=== PATIENT | male | born 1985 | race Two or more races ===

== ENCOUNTER 2016-07-20 00:39 | Emergency (ER) | payer OTHER ==
[2016-07-20 00:47] VITALS: BP 103/72; TEMP 98.8; BMI 25.5
[2016-07-20] MEDS ORDERED: LIDO 2%/EPI 1:200000 PRESRVFRE (20 ML SDVIAL) INF ONE (01:17)
[2016-07-20] MEDS ORDERED: LIDOCAINE 1%/EPI 1:100000 (50 ML MULTI DOSE VIAL) ONE (01:24)
[2016-07-20] MEDS ORDERED: TETANUS AND DIPHTHERIA TOXOID 0.5 ML DISP.SYRIN IM ONE (02:03)
[2016-07-20] MEDS ORDERED: BACITRACIN 0.9 GM PACKET TP ONE (02:03)
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
[2016-07-20 03:43] VITALS: PULSE 72
== END 2016-07-20 03:14 | disposition home or self-care (01) ==
LOC: JER 00:39
PROC: 3E0234Z Introduction of Serum, Toxoid and Vaccine into Muscle, Percutaneous Approach (ICD-10-PCS; principal; 2016-07-20)
PROC: 0HQBXZZ Repair Right Upper Arm Skin, External Approach (ICD-10-PCS; 2016-07-20)
DX: S41.111A Laceration without foreign body of right upper arm, initial encounter (principal); S43.491A Other sprain of right shoulder joint, initial encounter; X99.8XXA Assault by other sharp object, initial encounter; Y93.89 Activity, other specified; Y92.29 Other specified public building as the place of occurrence of the external cause
CPT/HCPCS: 12004-25; 73030-TC-RT; 90471; 90715; 99283-25

== ENCOUNTER 2018-01-23 09:21 | Day surgery (SDC) | payer OTHER ==
[2018-01-22 15:35] VITALS: BMI 29.9
--- NOTE | 2018-01-23 12:55 | HP ---
Admitting History and Physical - Admission Chief Complaint: pilonidal cyst History of Present Illness: 32 y.o. male with chronic draining sinus of the intergluteal fold associated with sanguinopurulent discharge. History Source: Patient Limitations to Obtaining History: No Limitations - Smoking History Smoking history: Current every day smoker Have you smoked in the past 12 months: Yes Aproximately how many cigarettes per day: 20 - Alcohol/Substance Use Hx Alcohol Use: No Home Medications - Allergies Allergies/Adverse Reactions: Allergies Allergy/AdvReac Type Severity Reaction Status Date / Time No Known Allergies Allergy Verified 01/22/18 15:35 - Home Medications Home Medications: Ambulatory Orders Citalopram Hydrobromide [Celexa -] 10 mg PO BID #60 tablet 09/02/17 Benztropine Mesylate [Cogentin -] 1 mg PO HS #14 tablet 12/24/17 Risperidone [Risperdal] 2 mg PO BID #28 tablet 12/24/17 Review of Systems - Review of Systems Constitutional: reports: No Symptoms Eyes: reports: No Symptoms HENT: reports: No Symptoms Cardiovascular: reports: No Symptoms Respiratory: reports: No Symptoms Gastrointestinal: reports: No Symptoms Integumentary: reports: Other (chronic draining sinus of intergluteal fold) Physical Examination Vital Signs: Vital Signs Temperature 97.5 F L 01/23/18 11:04 Pulse Rate 69 01/23/18 11:04 Respiratory Rate 18 01/23/18 11:04 Blood Pressure 209/65 H 01/23/18 11:04 O2 Sat by Pulse Oximetry (%) 97 01/23/18 11:04 Constitutional: Yes: Well Nourished Eyes: Yes: Conjunctiva Clear HENT: Yes: Normocephalic Neck: Yes: Supple Cardiovascular: Yes: Regular Rate and Rhythm Respiratory: Yes: CTA Bilaterally Gastrointestinal: Yes: Soft ...Rectal Exam: Yes: Deferred Musculoskeletal: Yes: WNL Integumentary: Yes: Other (3 mm sinus at intergluteal fold with minimal sanguinopurulent discharge) Neurological: Yes: Alert, Oriented Problem List - Problems (1) 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
[2018-01-23] MEDS ORDERED: MIDAZOLAM HCL 2 MG/2 ML SINGLE DOSE VIAL ONE ×4 (13:25→14:49)
[2018-01-23] MEDS ORDERED: LIDOCAINE 1%/EPI 1:100000 (20 ML MULTI DOSE VIAL) ONE (13:33)
[2018-01-23] MEDS ORDERED: ISOSULFAN BLUE 10 MG/ML VIAL SQ ONE (13:33)
[2018-01-23] MEDS ORDERED: ONDANSETRON 4 MG/2 ML VIAL IVPUSH PRN (13:41)
[2018-01-23] MEDS ORDERED: PROPOFOL 20 ML ONE (13:52)
[2018-01-23] MEDS ORDERED: SUCCINYLCHOLINE CHLORIDE 200 MG/10 ML VIAL ONE (13:53)
[2018-01-23] MEDS ORDERED: ceFAZolin SODIUM 1 GM VIAL IVPB ONE (14:04)
[2018-01-23] MEDS ORDERED: LIDOCAINE 1%/EPI 1:100000 (50 ML MULTI DOSE VIAL) INF ONE (14:26)
[2018-01-23] MEDS ORDERED: oxyCODONE HCL 5 MG TABLET PO PRN (19:57)
[2018-01-23] MEDS ORDERED: oxyCODONE HCL 5 MG TABLET PO ONE (23:30)
[2018-01-24] MEDS: oxyCODONE HCL 5 MG TABLET PO PRN ×3 (01:32→09:21)
[2018-01-24 08:35] VITALS: BP 119/74; PULSE 95; TEMP 98.6
--- NOTE | 2018-01-24 08:55 | OP ---
DATE OF OPERATION: 01/23/2018 LOCATION: Ambulatory surgery. PROCEDURE: Excision of pilonidal cyst. PREOPERATIVE DIAGNOSIS: Pilonidal cyst with chronic draining sinus. POSTOPERATIVE DIAGNOSIS: Pilonidal cyst with chronic draining sinus. SURGEON: Farooq Robledo MD ANESTHESIA: Spinal. ESTIMATED BLOOD LOSS: About 5 mL. WOUND CLASS: Clean, contaminated. The patient received 2 g of Ancef prior to the start of the procedure. FINDINGS: This is a 32-year-old male who presents with a several-month history of intermittent drainage of a 3-mm sinus of the cleft with nearby small multiple hair pits. Conservative management was initiated with antibiotics, hair removal , and chlorhexidine wash but proved unsuccessful, so the patient was finally advised excision of the cyst, and consent was obtained after discussion of the risks, benefits, and alternatives of the procedure. DESCRIPTION OF PROCEDURE: The patient was brought to the operating room and placed in sitting position. Spinal anesthesia was administered. The patient was then placed in prone position. Using hair clipper, the hair around the area was removed. The operative site was prepped and draped in the usual sterile fashion. Using 0.5% Marcaine, local anesthesia was administered to the proposed incision site. About 3 mL of Isosulfan Blue dye was injected into the sinus. A 4-cm x 2-cm elliptical incision was made using scalpel blade No. 15, and further dissection using Bovie cautery was done until the ellipse of skin together with the cyst adjacent to the bluish discoloration was excised. This excision was done as far as the periosteum of the patient's coccyx. The wound was undermined about 2 cm on each side. The wound was copiously irrigated with sterile normal saline until it returned clear. A Daniel-Larson No. 7 drain was deployed into the cavity and exited via a separate stab wound connected to bulb suction. The wound was closed with continuous Vicryl 0 suture for the Rola fascia and interrupted vertical mattress sutures using nylon 2-0 for the skin. The wound was covered with sterile dressing. The patient was placed back in supine position and transferred to the post anesthesia care unit in satisfactory condition. Estimated blood loss was 10 ml. Elisa [id number] MTD
--- NOTE | 2018-01-27 16:56 | PATH ---
Surgical Pathology Report Patient Name: J[place] KRISHNA [facility]. Rec. #: [id number] /Age/Gender: 1985 (Age: 32) / M Account: [id number] Location: [facility] SURGICAL Taken: 01/23/2018 Received: 01/26/2018 Reported: 01/27/2018 Physicians: Farooq Robledo M.D. Specimen(s) Received PILONIDAL CYST Clinical History Pilonidal cyst Final Diagnosis PILONIDAL CYST, EXCISION: INFLAMED PILONIDAL CYST. Electronically Signed Ruthy Clancy M.D. Gross Description Received in formalin labeled "pilonidal cyst," is a 2.8 x 0.6 cm finley, elliptical, unoriented portion of skin excised to depth of 2.4 cm. The epidermal surface displays a focal defect. Sectioning reveals an intact cystic structure. A inbound customer service representative section is submitted in one cassette. 01/26/201801/26/2018
== END 2018-01-24 10:29 | disposition home or self-care (01) ==
LOC: JASU-SURG 09:21 → J8W 18:55 → JASU-SURG 01-24 10:29
PROVIDERS: ATTEND Surgery
PROC: 0JB90ZZ Excision of Buttock Subcutaneous Tissue and Fascia, Open Approach (ICD-10-PCS; principal; 2018-01-23 12:30)
DX: L05.91 Pilonidal cyst without abscess (principal)
CPT/HCPCS: 88304-TC; 90853; 94760